=== PATIENT | female | born 1985 | race Caucasian/White ===

== ENCOUNTER → 2016-12-16 | Day surgery (SDC) | payer OTHER ==
[~2016-12-16] MED LIST: AMOX-364 PO; IBUP800T28 PO; INFL100V IV; Lactated Ringer's 1,000 ML IV ONE; MULT-666 PO; ONDA-54 PO; OXYC1TAB24 PO; PRE20 PO; RANI-426 PO
== END | disposition home or self-care (01) ==
LOC: END 12:47
PROVIDERS: ATTEND Internal Medicine Gastroenterology
DX: K51.90 Ulcerative colitis, unspecified, without complications (principal); Z53.8 Procedure and treatment not carried out for other reasons

== ENCOUNTER 2016-12-25 01:20 | Emergency (ER) | payer OTHER ==
[~2016-12-25] VITALS: Ht 160 cm; Wt 98.6 kg
[~2016-12-25 01:20] MED LIST changes: -AMOX-364 PO; -INFL100V IV; -Lactated Ringer's 1,000 ML IV ONE; -ONDA-54 PO; -PRE20 PO
[2016-12-25 01:25] VITALS: BP 146/83; PULSE 127; RESP 18; O2SAT 99
--- NOTE | 2016-12-25 01:48 | ED.REPORT ---
HPI-Abd Pain F Under 40 Date of Service Dec 25, 2016 ED Provider: Doc,Ed MD The pt is a 31 y/o female w/ a hx of ulcerative colitis presenting to the ED complaining of severe abdominal pain onset 6 days ago. She went to her PCP 5 days ago who prescribed her Prednisone 40 MG which she took for 3 days. She is experiencing diarrhea, blood in the stool, and upper and left sided abdominal pain which radiates to her back w/ a throbbing pain. The pt took a Vicodin at 2130 w/ minimal relief and a CBD drink that did no help at all. She last had a fever 5 days ago. Nursing Notes Stated Complaint: ABDOMINAL PAIN Chief Complaint: Female Abdominal Pain Nursing Notes Reviewed: Yes Allergies: Coded Allergies: No Known Allergies (Verified , 10/25/03) Scheduled Amoxicillin/Clav K ER 1000-62.5 mg (Augmentin XR 1000-62.5 mg) 1 Each Tab.er.12h 1 TABLET PO BID Multivitamin (Once Daily) 1 Each Tablet 1 EACH PO DAILY Prednisone (PredniSONE) 20 Mg Tablet 40 MG PO DAILY Ranitidine (Ranitidine) 75 Mg Tablet 75 MG PO DAILY Scheduled PRN Ibuprofen (Ibuprofen) 800 Mg Tablet 800 MG PO Q6H PRN PRN For Pain Ondansetron (Ondansetron) 8 Mg Tablet 8 MG PO QID PRN PRN For Nausea oxyCODONE-Acetaminophen 5-325 mg (oxyCODONE-Acetaminophen 5-325 mg) 1 Each Tablet 1-2 TAB PO Q4H PRN PRN For Pain oxyCODONE-Acetaminophen 5-325 mg (oxyCODONE-Acetaminophen 5-325 mg) 1 Each Tablet 2 TAB PO Q6H PRN PRN For Pain General Time Seen by MD: 01:48 Chief Complaint Abdominal pain Hx Obtained From: Patient Arrived By: Walk-in Sudden in Onset?: Yes Onset Occurred: Just prior to arrival Symptom Duration: Since onset Severity: Current: Severe Severity: Maximum: Severe Recent Healthcare: No recent hospitalization, Recent doctor visit Similar Sx Previous: Yes Past Medical History Past Medical History Ulcerative colitis Past Surgical History Smoking History Never Smoker Ambulatory Status Independent Review of Systems GI: Reports: Abdominal pain, Bloody/tarry stool, Diarrhea Musculoskeletal: Reports: Back pain Complete sys rev & neg: except as marked. Physical Exam Initial Vital Signs Vital Signs (First) Date Time Temp Pulse Resp B/P Pulse Ox O2 Delivery O2 Flow Rate FiO2 12/25/16 01:25 37.4 127 18 146/83 99 Room Air Initial VS: Reviewed Head / Eyes: Atraumatic, Normocephalic Neck: Supple, Full range of motion Extremities: Vascular intact, Neuro intact, No swelling, No tenderness Skin: Warm, Dry, No cyanosis Neurologic: Alert, Oriented, Nonfocal Psychiatric: Mood/affect normal, Behavior normal, Normal thought content General/Constitutional: Awake, Alert Distress / Hydration: Positive: Distress mild Appearance / Presentation: Positive: Obese Respiratory / Chest: Atraumatic, Breath sounds NL, Breath sounds = bilat, No respiratory distress, No rales, No rhonchi, No wheezing Cardiovascular: Heart rate NL, Regular rhythm, Heart sounds NL Abdomen: Atraumatic, Soft, BS normoactive Tenderness/Guarding/Rebound: Positive: Tender diffuse Back: Atraumatic, Full range of motion Interpretation & Diagnostics Lab Results Interpretation Result Diagram: 12/25/16 0145 12/25/16 0145 Test 12/25/16 01:45 12/25/16 02:00 12/25/16 02:35 White Blood Count 13.8th/mm3 (3.8-10.1) Red Blood Count 4.18mil/mm3 (3.90-5.20) Hemoglobin 11.6g/dL (12.0-15.6) Hematocrit 36.0% (35.0-46.0) Mean Corpuscular Volume 86.1fL (81-100) Mean Corpuscular Hemoglobin 27.8pg (27.0-35.0) Mean Corpuscular Hemoglobin Concent 32.2% (32.0-37.0) Red Cell Distribution Width 14.4% (12.3-15.4) Platelet Count 551bil/L (150-400) Neutrophils (%) (Auto) 59.1% (40-74) Lymphocytes (%) (Auto) 28.2% (14-46) Monocytes (%) (Auto) 11.6% (4-12) Eosinophils (%) (Auto) 0.4% (0-5) Basophils (%) (Auto) 0.1% (0-3) Prothrombin Time 10.0sec (8.1-12.5) Prothromb Time International Ratio 0.94ratio Sodium Level 136mEq/L (134-144) Potassium Level 3.6mEq/L (3.5-5.2) Chloride Level 95mEq/L (97-108) Carbon Dioxide Level 24mmol/L (18-29) Blood Urea Nitrogen 15mg/dL (6-20) Creatinine 1.02mg/dL (0.57-1.00) Estimat Glomerular Filtration Rate 90mL/min (>59) Glucose Level 90mg/dL (60-99) Calcium Level 9.2mg/dL (8.5-10.1) Magnesium Level 2.1mg/dL (1.6-2.6) Total Bilirubin 0.3mg/dL (0.0-1.2) Aspartate Amino Transf (AST/SGOT) 24U/L (0-50) Alanine Aminotransferase (ALT/SGPT) 26U/L (0-32) Alkaline Phosphatase 151U/L (25-150) Total Protein 8.6g/dL (6.4-8.4) Albumin 3.8g/dL (3.4-5.0) Lipase 27U/L (13-60) Urine Color Yellow (YELLOW) Urine Appearance Cloudy (CLEAR,HAZY) Urine pH 6.0 (5.0-8.0) Urine Specific [place] 1.020 (1.003-1.035) Urine Protein 30mg/dL (NEG,TRACE) Urine Glucose (UA) Negativemg/dL (NEGATIVE) Urine Ketones Tracemg/dL (NEGATIVE) Urine Occult Blood Moderate (NEGATIVE) Urine Nitrite Negative (NEGATIVE) Urine Bilirubin Negative (NEGATIVE) Urine Urobilinogen Normalmg/dL (NORMAL) Urine Leukocyte Esterase Moderate (NEGATIVE) Urine RBC 3-10/hpf (0-2) Urine WBC >50/hpf (0-5) Urine Epithelial Cells Many/hpf (NONE-MOD) Urine Crystals None seen (NONE SEEN) Urine Bacteria Moderate/hpf (NONE-FEW) Urine Hyaline Casts None/lpf (NONE) Urine Granular Casts None seen (NONE SEEN) Urine Waxy Casts None seen (NONE SEEN) Urine Red Blood Cell Casts None seen (NONE SEEN) Urine White Blood Cell Casts None seen (NONE SEEN) Urine Mucus None seen (None Seen) Urine Trichomonas None seen (NONE SEEN) Urine Yeast None (NONE SEEN) Urinalysis Comment None Urine Culture Reflexed Indicated Lactic Acid Level 0.8mmol/L (0.4-2.0) CT Abd / Pelvis Interpretation Conclusion: Edematous wall thickening of the distal transverse colon, descending colon and sigmoid colon consistent w/ ulcerative colitis. There is some fatty infiltration of the rectal wall compatible w/ chronic colitis. This report was transmitted to the emergency room at 12/25/16 - 3:22:38 AM PDT. Study type: Abdominal CT IV contrast, Abdom CT oral contrast Interpretation / Wet Read by: Interpret - Radiologist Re-Eval/Medical Decision Med Decision/Clinical Course Med Decision/Clinical Course: 31-year-old ulcerative colitis presents with a flare, documented on CT tonight. CT was obtained because of treatment failure after five days of prednisone. She had previously done well on Remicade, but is waiting for insurance clearance to resume therapy. SHe has no evidence of perforation or other surgical complications at this point. She is improved with Decadron given IV and will return home with plan to resume her 40 mg prednisone dose, contact Dr. BARTHOLOMEW today. Incidental note made of a urinary tract infection, we will treat that with Augmentin, adding anaerobe coverage to help to deal with her ulcerative colitis flare. Source of Hx: Old records Re-Evaluation/Progress : Time of Eval: 04:51 Re-Evaluation/Progress Note: Pt rechecked. Discussed radiology results. Pts abdomen is still mildly tender but overall she is feeling better. Informed pt of plan for treatment. Pt understands and agrees with plan for treatment. F/U instructions and RTER warnings given. All questions addressed. Counseled Regarding: Diagnosis, Lab results, Need for follow-up, When/why to return to ED Discharge & Departure Primary Impression: Ulcerative colitis Ulcerative colitis location: unspecified ulcerative colitis location Digestive disease complication type: unspecified complication Qualified Code: K51.919 - Ulcerative colitis, unspecified with unspecified complications Disposition: Home Discharge Condition All VS Reviewed: Yes Condition: Stable Additional Instructions: Resume prednisone at 40 mg daily, beginning this morning. Call Dr. Bartholomew this morning for follow-up as soon as that can be arranged. Sparing use of Percocet as needed for pain. Zofran if needed for nausea. Augmentin twice daily. Return if you develop fever or worsening bleeding or pain or other new symptoms of concern. Referrals: Silvino Reddy MD (PCP) Scribe Attestation Portions of this note were transcribed by El Kenny. I, Dr. Sutton personally performed the history, physical exam and medical decision-making; I reviewed and confirmed the accuracy of the information in the transcribed note. Signed by : Ivett Samuel, 12/24/16 and 1513. copies to: Silvino Reddy MD, Christopher W MD Dec 25, 2016 01:48 El Kenny Dec 25, 2016 02:01
[2016-12-25] MEDS ORDERED: Iohexol 300 mg/mL 30 mL Inj PO ONE (02:00)
[2016-12-25] MEDS ORDERED: Ondansetron 2 mg/mL 2 mL Inj IVPUSH ONE (02:00)
[2016-12-25] MEDS ORDERED: 0.9% Sodium Chloride 1,000 ML IV ONE (02:00)
[2016-12-25] MEDS ORDERED: Dexamethasone Inj 10 MG in 0.9% Sodium Chloride-Pha MIX 50 ML IV ONE (02:00)
[2016-12-25] MEDS: HYDROmorphone 1 mg/mL Inj IVPUSH PRN ×2 (02:17→03:44)
[2016-12-25 02:22] LABS: BASOPHILS % (AUTO) 0.1 % (0-3); EOSINOPHILS % (AUTO) 0.4 % (0-5); MONOCYTES % (AUTO) 11.6 % (4-12); Mean Corpuscular Hemoglobin 27.8 pg (27.0-35.0); Mean Corpuscular Volume 86.1 fL (81-100); NEUTROPHILS % (AUTO) 59.1 % (40-74); Platelet Count 551 bil/L (150-400)
[2016-12-25 02:33] LABS: APPEARANCE,URINE CLOUDY (CLEAR,HAZY); COLOR,URINE YELLOW (YELLOW); OCCULT BLOOD,URINE MODERATE (NEGATIVE); UROBILINOGEN,URINE NORMAL (NORMAL)
[2016-12-25 02:38] LABS: INR 0.94 ratio
[2016-12-25 02:46] LABS: Magnesium 2.1 mg/dL (1.6-2.6)
[2016-12-25 03:43] VITALS: BP 114/63; PULSE 88; RESP 18; O2SAT 98
[2016-12-25] MEDS ORDERED: ONDA-54 PO (04:59)
[2016-12-25] MEDS ORDERED: AMOX-364 PO (04:59)
[2016-12-25] MEDS ORDERED: PRE20 PO (04:59)
[2016-12-25] MEDS ORDERED: OXYC1TAB24 PO (05:05)
--- NOTE | 2016-12-25 08:23 | DRSVH ---
PROCEDURE: CT ABDOMEN AND PELVIS WITH CONTRAST ([id number]) INDICATIONS: ulcerative colitis, flare despite prednisone TECHNIQUE: After the administration of oral and intravenous contrast, 5 mm thick sections acquired from the diap hragms to the symphysis. 5 mm thick coronal and sagittal reformats were performed. For radiation do se reduction, the following was used: automated exposure control, adjustment of mA and/or kV accordi ng to patient size. COMPARISON: CT abdomen and pelvis 12/09/2012, 10/16/2012 FINDINGS: Preliminary report by night court magistrate radiology Image quality: Excellent. ABDOMEN: Lung bases: Lung bases are clear. Heart size is normal. Solid organs: Liver and spleen are normal in size and enhancement. Gallbladder appears normal. David iary system is non-dilated. Pancreas enhances normally. No adrenal nodules. Kidneys are normal in size and enhancement, without hydronephrosis. Peritoneum and bowel: Stomach and small bowel appear normal in caliber and wall thickness. The append ix is not definitely visualized but no pericecal inflammation is present. Similar to prior exams, the re is colonic wall thickening and pericolic fat stranding involving the distal transverse, descending and proximal sigmoid colon compatible with recurrent colitis. The rectosigmoid colon shows fatty inf iltration of the wall, likely result of previous inflammation. No perforation, abscess formation or f ree air seen. Nodes and vessels: No retroperitoneal or mesenteric adenopathy. Aorta and inferior vena cava are no rmal in caliber. Miscellaneous: No ventral hernias. PELVIS: Genitourinary: Bladder wall thickness is normal. Uterus and adnexa are unremarkable, ovary showing normal follicular pattern. Miscellaneous: No inguinal hernias or adenopathy. Bones: No suspicious bony lesions. No vertebral body compression fractures. IMPRESSION: 1. Recurrent ulcerative colitis from the distal transverse through the proximal sigmoid colon. Chroni c postinflammatory changes more distally. No apparent complication. Findings are concordant with the preliminary report. Dictated by: Luigi Draper M.D. on 12/25/2016 at 8:14 Approved by: Luigi Draper M.D. on 12/25/2016 at 8:21
[2017-01-01] MEDS ORDERED: INFL100V IV (14:26)
[2017-01-02] MEDS ORDERED: PRE20 PO (07:44)
== END 2016-12-25 05:13 | disposition home or self-care (01) ==
LOC: SED 01:20
DX: K51.919 Ulcerative colitis, unspecified with unspecified complications (principal)
CPT/HCPCS: 36415; 74177; 80053; 81000; 81025; 83605; 83690; 83735; 85025; 85610; 87086; 87088; 96361; 96374; 96375; 99285; J1100; J1170; J2405; J7030; Q9967

== ENCOUNTER 2016-12-27 18:18 | Emergency (ER) | payer OTHER ==
[~2016-12-27] VITALS: Ht 160 cm; Wt 98.6 kg
[~2016-12-27 18:18] MED LIST changes: +AMOX-364 PO; +ONDA-54 PO; +PRE20 PO
[2016-12-27 18:21] VITALS: BP 141/95; PULSE 95; RESP 16; O2SAT 99
--- NOTE | 2016-12-27 18:35 | ED.REPORT ---
HPI-General Illness Date of Service Dec 27, 2016 ED Provider: Avery Vargas MD Pt is a 31 y/o female w/ a hx of ulcerative colitis presenting to the ED c/o diffuse cramping abdominal pain onset 9 days ago. The patient was seen here in the ED 2 days ago for similar symptoms. She has a history of ulcerative colitis (UC) and was complaining of severe abdominal pain and bloody diarrhea for the last 6 days. She was prescribed [address] Bartholomew about [address] scan was obtained which showed no evidence of perforation or other surgical-requiring complications. The CT did show edematous wall thickening of the colon consistent with her known UC. She was given IV Decadron and was advised to continue her prednisone and f/u with her GI physician Dr. Bartholomew. She was coincidentally found to have a UTI and was treated with Augmentin. The patient normally takes Remicade which she typically receives every 8 weeks but had a lapse in her insurance so her last dose was the end of September. She has been experiencing clotted blood with bowel movements as well as diarrhea and fatigue. Compared to her last ED visit, she feels worse in terms of pain. The prescribed Oxycodone has not provided relief. Nursing Notes Stated Complaint: POSS ULCER COLITIS Chief Complaint: Female Abdominal Pain Nursing Notes Reviewed: Yes Allergies: Coded Allergies: No Known Allergies (Verified , 12/27/16) Scheduled Amoxicillin/Clav K ER 1000-62.5 mg (Augmentin XR 1000-62.5 mg) 1 Each Tab.er.12h 1 TABLET PO BID Multivitamin (Once Daily) 1 Each Tablet 1 EACH PO DAILY Prednisone (PredniSONE) 20 Mg Tablet 40 MG PO DAILY Ranitidine (Ranitidine) 75 Mg Tablet 75 MG PO DAILY Scheduled PRN Ibuprofen (Ibuprofen) 800 Mg Tablet 800 MG PO Q6H PRN PRN For Pain Ondansetron (Ondansetron) 8 Mg Tablet 8 MG PO QID PRN PRN For Nausea oxyCODONE-Acetaminophen 5-325 mg (oxyCODONE-Acetaminophen 5-325 mg) 1 Each Tablet 1-2 TAB PO Q4H PRN PRN For Pain oxyCODONE-Acetaminophen 5-325 mg (oxyCODONE-Acetaminophen 5-325 mg) 1 Each Tablet 2 TAB PO Q6H PRN PRN For Pain General Time Seen by MD: 18:30 Chief Complaint Abdominal pain Sudden in Onset?: No Onset Occurred: 1 week ago Symptom Duration: Since onset Location: : Abdomen Quality: Cramping Severity: Current: Moderate Severity: Maximum: Moderate Recent Healthcare: Recent doctor visit, Recent testing, Previous diagnosis, Prior workup Past Medical History Past Medical History Ulcerative colitis Past Surgical History x2 Smoking History Never Smoker Ambulatory Status Independent Review of Systems Full Review of Systems Constitutional: Denies: Chills, Fever Respiratory: Denies: Non-productive cough, Shortness of breath Cardiovascular: Denies: Chest pain GI: Reports: Abdominal pain, Bloody/tarry stool, Diarrhea Complete sys rev & neg: except as marked. Physical Exam Vital Signs Vital Signs Date Time Temp Pulse Resp B/P Pulse Ox O2 Delivery O2 Flow Rate FiO2 12/27/16 23:07 89 20 113/60 99 Room Air 12/27/16 18:21 37.0 95 16 141/95 99 Room Air Initial VS: Reviewed, Vital signs normal Head / Eyes: Atraumatic, Normocephalic, PERRL ENT: Mucous membranes moist, Conjunctiva normal, No scleral icterus Neck: Supple, Full range of motion Respiratory: Breath sounds normal, Clear to auscultation, No respiratory distress Cardiovascular: Regular rate & rhythm, Heart sounds normal, Intact distal pulses Extremities: Vascular intact, Neuro intact, No swelling Skin: Warm, Dry, No cyanosis Neurologic: Alert, Oriented, Nonfocal Psychiatric: Mood/affect normal, Behavior normal, Normal thought content General/Constitutional: Awake, Alert, No acute distress, Cooperative, Not toxic appearing Appearance / Presentation: Positive: Uncomfortable Abdomen: Atraumatic, Soft, No guarding, No rebound, BS normoactive, No distention, No palpable mass Tenderness/Guarding/Rebound: Positive: Tender diffuse (mild) Interpretation & Diagnostics Lab Results Interpretation Result Diagram: 12/27/16 2030 12/27/16 2030 Test 12/27/16 20:30 12/27/16 20:33 White Blood Count 12.1th/mm3 (3.8-10.1) Red Blood Count 3.98mil/mm3 (3.90-5.20) Hemoglobin 11.0g/dL (12.0-15.6) Hematocrit 34.8% (35.0-46.0) Mean Corpuscular Volume 87.4fL (81-100) Mean Corpuscular Hemoglobin 27.6pg (27.0-35.0) Mean Corpuscular Hemoglobin Concent 31.6% (32.0-37.0) Red Cell Distribution Width 14.4% (12.3-15.4) Platelet Count 525bil/L (150-400) Neutrophils (%) (Auto) 70.7% (40-74) Lymphocytes (%) (Auto) 17.7% (14-46) Monocytes (%) (Auto) 10.8% (4-12) Eosinophils (%) (Auto) 0% (0-5) Basophils (%) (Auto) 0.1% (0-3) Sodium Level 139mEq/L (134-144) Potassium Level 3.7mEq/L (3.5-5.2) Chloride Level 99mEq/L (97-108) Carbon Dioxide Level 26mmol/L (18-29) Blood Urea Nitrogen 9mg/dL (6-20) Creatinine 0.79mg/dL (0.57-1.00) Estimat Glomerular Filtration Rate 121mL/min (>59) Glucose Level 75mg/dL (60-99) Calcium Level 9.0mg/dL (8.5-10.1) Magnesium Level 2.1mg/dL (1.6-2.6) Total Bilirubin 0.2mg/dL (0.0-1.2) Aspartate Amino Transf (AST/SGOT) 16U/L (0-50) Alanine Aminotransferase (ALT/SGPT) 26U/L (0-32) Alkaline Phosphatase 131U/L (25-150) Total Protein 7.7g/dL (6.4-8.4) Albumin 3.4g/dL (3.4-5.0) Lipase 15U/L (13-60) Hold Youssef Top Tube Received (Received) Hold Urine Received (Received) CT Abd / Pelvis Interpretation IMPRESSION: Overall, stable CT examination since 12/25/16 with redemonstration of long segment descending, sigmoid colon and rectal wall thickening in keeping with the patient's given clinical history of inflammatory bowel disease. No evidence of bowel perforation. Dictated by: Arsenio Parmar M.D. on 12/27/2016 at 21:42 Approved by: Arsenio Parmar M.D. on 12/27/2016 at 21:53 Study type: Abdominal CT IV contrast, Abdom CT oral contrast Interpretation / Wet Read by: Interpret - Radiologist Re-Eval/Medical Decision Med Decision/Clinical Course Pt is a 31 y/o female w/ a hx of ulcerative colitis presenting to the ED c/o diffuse cramping abdominal pain onset 9 days ago. The patient was seen here in the ED 2 days ago for similar symptoms. She has a history of ulcerative colitis (UC) and was complaining of severe abdominal pain and bloody diarrhea for the last 6 days. She was prescribed [address] Bartholomew about [address] scan was obtained which showed no evidence of perforation or other surgical-requiring complications. The CT did show edematous wall thickening of the colon consistent with her known UC. She was given IV Decadron and was advised to continue her prednisone and f/u with her GI physician Dr. Bartholomew. She was coincidentally found to have a UTI and was treated with Augmentin. The patient normally takes Remicade which she typically receives every 8 weeks but had a lapse in her insurance so her last dose was the end of September. She has been experiencing clotted blood with bowel movements as well as diarrhea and fatigue. Compared to her last ED visit, she feels worse in terms of pain. The prescribed Oxycodone has not provided relief. Here in the emergency department the patient is afebrile, hemodynamically stable with examination as above. Meds given: IV fluids, Zofran, Dilaudid, patient reported significant improvement. Labs notable as below: CBC: leukocytosis of 12.1 stable from prior, HCT of 34.8 stable from prior Coag studies: normal CMP: unremarkable CT abd/pelvis: IMPRESSION: Overall, stable CT examination since 12/25/16 with redemonstration of long segment descending, sigmoid colon and rectal wall thickening in keeping with the patient's given clinical history of inflammatory bowel disease. No evidence of bowel perforation. Given the patient's complaint of worsening pain that having of inflammatory bowel disease and being on steroids after to repeat her CT scan after discussing the risks and benefits. This study was unrevealing. Moreover her laboratory studies are unrevealing. Patient was discussed with GI doctor Monserrat it was not felt that she would benefit from admission or further workup at this time. Serial abdominal examinations remained relatively benign without any guarding, rigidity or rebound. I updated the patient as to the workup thus far and she became quite upset stating that "she wanted to see a real doctor and that we did not know what we were doing". I discussed with the patient that I would like to be due more to treat her symptoms but that I feel that she would benefit most from seeing a GI specialist. I offered the patient admission to the hospitalist for symptom management and GI consultation however she refused stating that she would "just go home and suffer". I strongly advised her to follow up with GI this week and she stated she would try to get in for an appointment. I spent quite a while with the patient trying to address her concerns and discontent. She was discharged in stable condition with plan to continue her prednisone and follow-up with GI as an outpatient. She is to return should she develop any worsening symptoms. She has a C. difficile pending from her GI specialist and she will follow up these results. Prior to discharge follow-up and return precautions were reviewed in detail with the patient who verbalized understanding and agreement with the plan. The patient was discharged in stable condition. Source of Hx: Old records Time of Eval: 22:45 Re-Evaluation/Progress Note: Pt rechecked. She is still feeling unwell. Discussed lab and imaging findings and GI consult. Discussed admission for symptomatic relief vs. discharge. She states she can manage her symptoms at home but "wants to be fixed". Eventually she decides to be discharged and f/u in clinic. Consultation : Referral / Consult Name: Monica Cantrell MD Call Returned at: 22:41 Washing Machine Loader: Agrees with eval, Agrees with plan Note: Discussed case with GI. Doesn't see any indication for emergent treatment. Should get back on Remicade. Should call clinic to restart medication. Counseled Regarding: Diagnosis, Lab results, Need for follow-up, When/why to return to ED Discharge & Departure Primary Impression: Exacerbation of ulcerative colitis Digestive disease complication type: without complication Qualified Code: K51.90 - Ulcerative colitis, unspecified, without complications Additional Impressions: Leukocytosis Leukocytosis type: unspecified Qualified Code: D72.829 - Elevated white blood cell count, unspecified Diarrhea Diarrhea type: unspecified type Qualified Code: R19.7 - Diarrhea, unspecified Abdominal pain Abdominal location: unspecified location Qualified Code: R10.9 - Unspecified abdominal pain Agitation Disposition: Home Discharge Condition All VS Reviewed: Yes Condition: Stable Patient Instructions: Ulcerative Colitis (ED) Additional Instructions: Thank you for seeking care at the emergency room. It is difficult for us to make definitive diagnoses in the ED but we believe that you are experiencing a flare of your ulcerative colitis. Laboratory studies today were relatively reassuring and your CT scan did not show any evidence of perforation or abscess. We discussed your case with the GI doctors and they are willing to see you in clinic in the next couple of days. Please call them first thing tomorrow for an appointment. Tell them that you were seen in the ED and that we recommended close follow-up. I offered you admission to the hospital however you refused and preferred to be discharged. Our primary goal today in the ED was to evaluate you for any life-threatening conditions. Your evaluation was reassuring at this time however it is very important that you get close follow-up. Please continue to take prednisone and pain medications as prescribed. You should return to the ED immediately if you develop increasing pain, increasingly bloody stool, fevers, vomiting, cough, shortness of breath, chest pain, lightheadedness, weakness or any other concerning signs or symptoms. Thank you for letting us partake in your care today. Referrals: Silvino Reddy MD (PCP) Dragan Bartholomew MD Attestation Portions of this note were transcribed by Harry Chávez. I, Dr. Vargas personally performed the history, physical exam and medical decision-making; I reviewed and confirmed the accuracy of the information in the transcribed note. Signed by Ivett Casper, 12/27/16 - 1999 copies to: Silvino Reddy MD; Dragan Bartholomew MD, Beck O MD Dec 27, 2016 18:35 HARRY CHÁVEZ Dec 27, 2016 19:38
[2016-12-27] MEDS ORDERED: 0.9% Sodium Chloride 1,000 ML IV ONE (20:19)
[2016-12-27] MEDS ORDERED: Ondansetron 2 mg/mL 2 mL Inj IVPUSH ONE (20:20)
[2016-12-27] MEDS: HYDROmorphone 0.5 mg/0.5 mL iSecure Syringe IVPUSH PRN ×3 (20:43→23:06)
[2016-12-27 20:52] LABS: BASOPHILS % (AUTO) 0.1 % (0-3); EOSINOPHILS % (AUTO) 0 % (0-5); MONOCYTES % (AUTO) 10.8 % (4-12); Mean Corpuscular Hemoglobin 27.6 pg (27.0-35.0); Mean Corpuscular Volume 87.4 fL (81-100); NEUTROPHILS % (AUTO) 70.7 % (40-74); Platelet Count 525 bil/L (150-400)
[2016-12-27 21:12] LABS: Magnesium 2.1 mg/dL (1.6-2.6)
--- NOTE | 2016-12-27 21:54 | DRSVH ---
PROCEDURE: CT ABDOMEN AND PELVIS WITH CONTRAST ([id number]) INDICATIONS: worse abd pain, UC TECHNIQUE: After the administration of oral and intravenous contrast, 5 mm thick sections acquired from the diap hragms to the symphysis. 5 mm thick coronal and sagittal reformats were performed. For radiation do se reduction, the following was used: automated exposure control, adjustment of mA and/or kV accordi ng to patient size. COMPARISON: [facility], CT, CT ABD PELVIS W CON, 12/25/2016, 3:12. FINDINGS: Image quality: Excellent. ABDOMEN: Lung bases: Lung bases are clear. Heart size is normal. Solid organs: Liver and spleen are normal in size and enhancement. Gallbladder negative. Biliary s ystem is non-dilated. Pancreas enhances normally. No adrenal nodules. Kidneys are normal in size a nd enhancement, without hydronephrosis. Peritoneum and bowel: There is long segment circumferential wall thickening involving the rectum to t he distal transverse colon. Overall, grossly unchanged appearance. There is adjacent inflammatory fat stranding. Fatty infiltration of the wall of the sigmoid colon and rectum suggestive of chronic infl ammatory bowel disease. No free fluid or air. Nodes and vessels: No retroperitoneal or mesenteric adenopathy. Aorta and inferior vena cava are no rmal in caliber. Miscellaneous: No ventral hernias. PELVIS: Genitourinary: Bladder wall thickness is normal. Miscellaneous: No inguinal hernias or adenopathy. Bones: No suspicious bony lesions. No vertebral body compression fractures. IMPRESSION: Overall, stable CT examination since 12/25/16 with redemonstration of long segment descending, sigmoid colon and rectal wall thickening in keeping with the patient's given clinical history of inflammator y bowel disease. No evidence of bowel perforation. Dictated by: Arsenio Parmar M.D. on 12/27/2016 at 21:42 Approved by: Arsenio Parmar M.D. on 12/27/2016 at 21:53
[2016-12-27 23:07] VITALS: BP 113/60; PULSE 89; RESP 20; O2SAT 99
[2017-01-01] MEDS ORDERED: INFL100V IV (14:26)
[2017-01-02] MEDS ORDERED: PRE20 PO (07:44)
== END 2016-12-27 23:07 | disposition home or self-care (01) ==
LOC: SED 18:18
DX: K51.90 Ulcerative colitis, unspecified, without complications (principal); D72.829 Elevated white blood cell count, unspecified; R45.1 Restlessness and agitation; R53.83 Other fatigue
CPT/HCPCS: 36415; 74177; 80053; 81025; 83690; 83735; 85025; 96361; 96374; 96375; 96376; 99285; J1170; J2405; J7030; Q9967

== ENCOUNTER 2016-12-30 08:02 | Day surgery (SDC) | payer OTHER ==
[~2016-12-30] VITALS: Ht 160 cm; Wt 100.5 kg
[~2016-12-30 08:02] MED LIST changes: +FILTER IV ONE; +INFLIXIMAB IV ONE; +MICRON IV ONE; +MethylprednisoLONE Sodium Succinate 40 mg/mL Inj IVPUSH PRN; +SODIUM CHLORIDE 0.9% IV ONE; +Sodium Chloride LOK Flush 10 mL Syringe IVFLUSH PRN; +diphenhydrAMINE 25 mg Capsule PO ONE; +diphenhydrAMINE 25 mg Capsule PO PRN
[2016-12-30 09:15] VITALS: BP 122/70; PULSE 80; RESP 16; O2SAT 97
[2016-12-30 09:46] VITALS: BP 127/68; PULSE 81; RESP 16; O2SAT 97
[2016-12-30 10:16] VITALS: BP 125/72; PULSE 77; RESP 16; O2SAT 96
[2016-12-30 11:20] VITALS: BP 115/66; PULSE 76; RESP 16; O2SAT 97
--- NOTE | 2016-12-30 12:42 | NUR ---
Remicade infusion: IV started to right AC. Patient rates her abdominal pain r/t Ulcerative Colitis at 8/10 today. She has missed some days at work due to her pain. Tolerated ordered Remicade infusion without incident. IV d/c'd intact. She did not want to stay 30 min after infusion as ordered for monitoring. Stated that she does just fine. At this point she is waiting to hear back from her insurance to see if her medication is covered before she can schedule her next Remicade infusion in 8 weeks. Discharged home ambulatory in stable condition.
[2017-01-01] MEDS ORDERED: INFL100V IV (14:26)
[2017-01-02] MEDS ORDERED: PRE20 PO (07:44)
== END 2016-12-30 23:59 | disposition home or self-care (01) ==
LOC: MOCO 08:02
PROVIDERS: ATTEND Internal Medicine Gastroenterology
DX: K51.90 Ulcerative colitis, unspecified, without complications (principal)
CPT/HCPCS: 96413; 96415; J1745; J7050

== ENCOUNTER → 2017-01-02 | Day surgery (SDC) | payer OTHER ==
[~2017-01-02] VITALS: Ht 160 cm; Wt 98.4 kg
[~2017-01-02] MED LIST changes: -AMOX-364 PO; +Atropine 0.4 mg/mL Inj IVPUSH PRN; -FILTER IV ONE; +INFL100V IV; -INFLIXIMAB IV ONE; +Lactated Ringer's 1,000 ML IV ONE; +Lactated Ringer's 1,000 ML IV SCH; -MICRON IV ONE; -MethylprednisoLONE Sodium Succinate 40 mg/mL Inj IVPUSH PRN; +MetoCLOpramide 5 mg/mL 2 mL Inj IVPUSH PRN; +Ondansetron 2 mg/mL 2 mL Inj IVPUSH PRN; +Propofol 10,000 mCg/mL 20 mL Inj ONE; -SODIUM CHLORIDE 0.9% IV ONE; -Sodium Chloride LOK Flush 10 mL Syringe IVFLUSH PRN; -diphenhydrAMINE 25 mg Capsule PO ONE; -diphenhydrAMINE 25 mg Capsule PO PRN
[2017-01-02 07:40] VITALS: BP 109/23; PULSE 88; RESP 15; O2SAT 100
--- NOTE | 2017-01-02 07:55 | PCM.HPANE ---
Patient Data Date of Service: Jan 02, 2017 Surgeon Admitting Provider: Attending Provider:Dragan Bartholomew MD Primary Care Physician:Silvino Reddy MD Other Provider: Reason for Visit Ulcerative Colitis Ht/WT & BMI Height (Feet): 5 Height (Inches): 3 Weight (Kilograms): 98.43 Body Mass Index 38.00 Allergies Coded Allergies: No Known Allergies (Verified , 12/27/16) Past Anesthesia History Anesthesia History: Denies:: Abnormal Airway, Anesthesia Reactions, Difficult Intubation, Fam Anesthesia Reaction, Fam Malignant Hypertherm, Malignant Hyperthermia Diabetes History Hx Diabetes?: No MRSA MRSA: No Medications Hypertension Medication: No Home Meds Incl Beta Jason: No Active Scripts oxyCODONE-Acetaminophen 5-325 mg 1 Each Tablet2 Tab PO Q6H PRN For Pain #30 TABLET Prov:Charlie Sutton MD 12/25/16 Ondansetron 8 Mg Tablet8 Mg PO QID PRN For Nausea #10 TABLET Prov:Charlie Sutton MD 12/25/16 Reported Medications Prednisone (PredniSONE)20 Mg [id number] Mg PO DAILY Ref 0 01/02/17 Infliximab (Remicade)10 Mg/Ml [id number] Mg IV 01/01/17 Ranitidine 75 Mg Oukhex36 Mg PO DAILY Ref 0 11/11/15 Multivitamin (Once Daily)1 Each Tablet1 Each PO DAILY 11/11/15 Discontinued Scripts Ibuprofen 800 Mg [id number] Mg PO Q6H PRN For Pain #30 TABLET Prov:Cindy John MD 01/19/16 Amoxicillin/Clav K ER 1000-62.5 mg (Augmentin XR 1000-62.5 mg)1 Each Tab.er.12h1 Tablet PO BID #20 TABLET Ref 0 Prov:Charlie Sutton MD 12/25/16 Prednisone (PredniSONE)20 Mg Dollrg86 Mg PO DAILY #30 TABLET Prov:Charlie Sutton MD 12/25/16 oxyCODONE-Acetaminophen 5-325 mg 1 Each Tablet1-2 Tab PO Q4H PRN For Pain #40 TABLET Prov:Yara Case MD 01/19/16 History History of ENT Problems?: No HEENT History: Denies:: Abnormal Airway Difficult Intubation Hearing Problem Denture Type: None Teeth Condition: Within Normal Limits Other HEENT Pertinent History: lip rings Hx of Heart Problems?: No Cardiovascular History: Denies:: Congestive Heart Failure Hypertension Hx of Respiratory Problem?: No Respiratory History: Denies:: Tuberculosis Hx Neurologic Problems?: Yes Neurological History: Positive for:: Headaches Denies:: CVA Hx of GI Problems?: Yes (ulcerative colitis) Hx of Problems?: No Female Hx: Denies:: Currently (TUBES TIDE) Endometriosis Pelvic Inflammatory Problems with Breasts? Hx Musculoskeletal Problems?: No Hx of Psycho/Social Problems?: No Psycho Social History: Denies:: Hx Depression Hx Surgeries?: Yes ( X2) Hx Any Other Health Problems?: Yes Other History: Positive for:: Hospitalization History Blood Transfusions: Positive for:: Blood Transfusions Denies:: Blood Transfuse Reaction Hx Diabetes: No Hx Alcohol Use: NoHx Substance Use: Yes (CBD for pain) Smoking Status: Never Smoker Have You Smoked inLast 12 mo: No Stop/Bang Treated for Sleep Apnea?: Yes Do You Have a CPAP Machine?: Yes TAMIKA Risk Assessment: High Risk, =/>3 Yes Risk Assessment Category Category 1A: Patient has history of documented sleep apnea, and HAS NOT received any narcotic, sedative or anesthesia administration during this stay. Category 1B: Patient has history of documented sleep apnea, and HAS received any narcotic , sedative or anesthesia administration during this stay Category 2: Patient has SUSPECTED Obstructive Sleep Apnea, and HAS received any narcotic , sedative or anesthesia administration during this stay. Category 3: Patient has SUSPECTED Obstructive Sleep Apnea and HAS NOT received narcotic, sedative or anesthesia administration during this stay. Category 4: Outpatient in Procedural Areas with known sleep apnea or who screen positive for High Risk via the STOP/BANG questionnaire. Exam Exam Vital Signs Vital Signs Date Time Temp Pulse Resp B/P Pulse Ox O2 Delivery O2 Flow Rate FiO2 01/02/17 07:40 36.6 88 15 109/23 100 Room Air General Appearance: Alert, Oriented X3, Cooperative HEENT/AIRWAY: MP 2, Neck Movement (OK), Mouth Opening (Wide) Lungs: Clear to Auscultation, Normal Air Movement Heart: Regular Rate/Rhythm, Normal S1, Normal S2 Plan Impression Patient chart reviewed, patient interviewed and anesthestic plan with risks, benefits, and alternatives discussed, and informed consent obtained. NPO per Anesth. Guidelines: Yes ASA Physical Status: ASA2 Mod Systemic Disease Anesthetic Plan: MAC Bene/Risks/Altern/Consents: Yes HP Complete Prior to Induction: Yes Mat Wong MD Jan 02, 2017 07:55
[2017-01-02 08:36] VITALS: BP 121/75; PULSE 88; RESP 16; O2SAT 100
--- NOTE | 2017-01-02 08:43 | PCM.ANEP1 ---
Post Anesthesia PACU Phase 1 Assessment Date of Service: Jan 02, 2017 Vital Signs Vital Signs Date Time Temp Pulse Resp B/P Pulse Ox O2 Delivery O2 Flow Rate FiO2 01/02/17 08:36 88 16 121/75 100 Room Air 01/02/17 07:40 36.6 88 15 109/23 100 Room Air Anesthetic Administered: MAC Level of Alertness: Sleepy, easy to arouse CRUZ's with Equal Strength: Yes Pain: Yes Nausea or Vomiting: No CV Function & Hydration Stable: No Airway Device: Oxygen Delivery: Room Air Lungs: Clear to Auscultation, Normal Air Movement Dermatome Level: Full Sensation PACU Phase 2 Assessment Complications: No Follow up Care: N/A Patient Instructions Provided: N/A Mat Wong MD Jan 02, 2017 08:43
[2017-01-02 08:45] VITALS: BP 123/70; PULSE 86; RESP 14; O2SAT 100
[2017-01-02 08:54] VITALS: BP 139/83; PULSE 97; RESP 14; O2SAT 100
--- NOTE | 2017-01-02 09:08 | ENDO ---
[address] [address] ENDOSCOPY PROCEDURE PATIENT: AVINASH CALI : 1985 MR#: [id number] ADMIT: 01/02/2017 JOB ID: [id number] DATE OF SURGERY: 01/02/2017 PRIMARY PROVIDER: Aldair Reddy MD. PROCEDURE: Colonoscopy with biopsies. INDICATIONS: A 31-year-old female with ulcerative colitis. She has been flaring since an insurance debacle in regards to Remicade. She was three weeks overdue for Remicade. She received her most recent dose three days ago and has started to feel some improvement. EQUIPMENT: [employer]. SEDATION: Monitored anesthesia as provided by Dr. Mat Wong. COMPLICATIONS: None identified. BOWEL PREPARATION: Suboptimal. PROCEDURE INFORMATION: After the risks and benefits were explained, written and verbal informed consent was obtained. The patient was brought into the endoscopy suite and placed into the left lateral decubitus position. Sedation was achieved using the above-stated medications with the addition of oxygen via nasal cannula. A digital rectal examination was accomplished. Mild internal and external, nonbleeding and nonthrombosed hemorrhoids were noted. The scope was introduced into the rectum and advanced to the cecum as identified by the appendiceal orifice, which was covered in stool and not really easily identifiable. The ileocecal valve was identified. The scope was slowly withdrawn to carefully examine the mucosa for any defects or lesions. Multiple direct views were made through the dentate line. The colon was decompressed. Scope removed from the patient who tolerated the procedure well. FINDINGS: The patient had moderate to severe ulcerative proctocolitis from the rectum all the way to the splenic flexure. The most intense region was in the rectosigmoid region. The transverse and ascending colon appeared devoid of inflammatory changes. Prep conditions were quite suboptimal as described above. We did not get a great look into the cecum and could not find the ileal orifice as a consequence. Segmental biopsies were taken from the ascending, transverse, descending, sigmoid and finally rectum for histopathologic analysis. ENDOSCOPIC DIAGNOSIS: Proctocolitis to splenic flexure. RECOMMENDATIONS: 1. Await histopathology. 2. Continue Remicade 1000 mg every 8 weeks. 3. The patient is encouraged to temporarily increase prednisone back up to 40 mg per day for the next four days and then retaper from there. 4. Follow up in my office in the next two weeks. 5. Taper off of pain medications as few clinically respond to the Remicade and prednisone.
--- NOTE | 2017-01-04 14:33 | PATH ---
SURGICAL PATHOLOGY Attending Physician:Michael Gaitan CASE STATUS: Signed Out PATIENT NAME: AVINASH CALI PID: [id number] : 1985 DATE COLLECTED:01/02/2017 16:28 SPECIMEN: 1: Colon, Biopsy 2: Colon, Biopsy 3: Colon, Biopsy 4: Colon, Biopsy 5: Rectum, Biopsy CLINICAL HISTORY: 1). ASCENDING BIOPSY 2). TRANSVERSE BIOPSY 3). DESCENDING BIOPSY 4). SIGMOID BIOPSY 5). RECTAL BIOPSY FINAL DIAGNOSIS: 1. Ascending Colon, Biopsy: Focal active inflammation. There is no evidence of granulomas, dysplasia, or malignancy. 2. Transverse Colon, Biopsy: Colorectal mucosa with no diagnostic abnormality. Negative for active inflammation, granulomas, dysplasia, and malignancy. 3. Descending Colon, Biopsy: Chronic active colitis. Negative for granulomas, dysplasia, and malignancy. 4. Sigmoid Colon, Biopsy: Chronic active colitis. Negative for dysplasia, granulomas, and malignancy. 5. Rectal Biopsy: Chronic active colitis. Negative for granulomas, dysplasia, and malignancy. ICD10: K52.9 NOTE: Part 1: Sections demonstrate superficial portions of colorectal mucosa with occasional neutrophils and regions of cryptitis. No granulomas, regions of dysplasia, or regions of neoplasia are identified. The differential diagnosis includes NSAID use, an acute self-limited bacterial colitis, the effect of sodium phophate-containing bowel preparation solutions, and idiopathic inflammatory bowel disease, in the appropriate clinical setting. Parts 3, 4, and 5: Sections demonstrate superficial portions of colorectal mucosa with crypt architectural distortion and a dense population of lymphocytes, plasma cells, and neutrophils within the lamina propria. Cryptitis is present and occasional crypt abscesses are present in parts 3 and 4. No granulomas, regions of dysplasia, or regions of neoplasia are identified. The differential diagnosis includes NSAID use, an acute self-limited bacterial colitis, the effect of sodium phophate-containing bowel preparation solutions, and idiopathic inflammatory bowel disease, in the appropriate clinical setting. GROSS DESCRIPTION: The specimen is received in five formalin filled containers labeled with the patient's name. 1). The specimen is labeled "ascending" and consists of a 0.2 x 0.2 x 0.1 CM portion of tissue which is entirely submitted in cassette 1A. 2). The specimen is labeled "transverse" and consists of 2 extremely tiny portions of tissue which aggregate to 0.1 x 0.1 x 0.1 CM. The specimen is entirely submitted in cassette 2A. 3). The specimen is labeled "descending" and consists of a 0.3 x 0.2 x 0.2 CM portion of tissue which is entirely submitted in cassette 3A. 4). The specimen is labeled "sigmoid" and consists of 2 portions of tissue which aggregate to 0.2 x 0.2 x 0.2 CM. The specimen is entirely submitted in cassette 4A. 5). The specimen is labeled "rectal" and consists of 2 portions of tissue which aggregate to 0.2 x 0.2 x 0.2 CM. The specimen is entirely submitted in cassette 5A. 01/03/2017OK ICD-9 CODES: CPT CODES: 1: 21639 2: 33730 3: 06873 4: 20173 5: 32476 Electronically Signed Out Jessenia Stoner MD [facility] Pathology [facility]., [address] [place] [address], [place] [address] Technical component performed at [facility], [address] [place] [address] Ave[address], [place], [address]
== END | disposition home or self-care (01) ==
LOC: END 07:24
PROVIDERS: ATTEND Internal Medicine Gastroenterology
DX: K51.90 Ulcerative colitis, unspecified, without complications (principal); R51 Headache; Z79.899 Other long term (current) drug therapy; Z79.52 Long term (current) use of systemic steroids
CPT/HCPCS: 45380; J7120

== ENCOUNTER → 2017-03-17 | Day surgery (SDC) | payer OTHER ==
[~2017-03-17] MED LIST changes: -Atropine 0.4 mg/mL Inj IVPUSH PRN; -IBUP800T28 PO; -Lactated Ringer's 1,000 ML IV ONE; -Lactated Ringer's 1,000 ML IV SCH; -MetoCLOpramide 5 mg/mL 2 mL Inj IVPUSH PRN; -Ondansetron 2 mg/mL 2 mL Inj IVPUSH PRN; -Propofol 10,000 mCg/mL 20 mL Inj ONE; +SODIUM CHLORIDE 0.9% IV ONE; +VEDOLIZUMAB IV ONE; +diphenhydrAMINE 25 mg Capsule PO ONE
[2017-03-17 14:22] LABS: BASOPHILS % (AUTO) 0.2 % (0-3); EOSINOPHILS % (AUTO) 4.1 % (0-5); MONOCYTES % (AUTO) 11.7 % (4-12); Mean Corpuscular Hemoglobin 24.7 pg (27.0-35.0); Mean Corpuscular Volume 80.3 fL (81-100); NEUTROPHILS % (AUTO) 59.2 % (40-74); Platelet Count 495 bil/L (150-400)
[2017-03-17 14:26] VITALS: BP 119/69; PULSE 83; RESP 18; O2SAT 100
[2017-03-17 14:36] LABS: ERYTHROCYTE SEDIMENTATION RATE 83 mm/hr (0-32)
--- NOTE | 2017-03-17 14:36 | NUR ---
Pt arrived to [facility]: Pt arrived to [facility] for first dose of Entyvio. IV started and infusing started. Pt tolerated infusion without issues. Pt prefers to be in a bed for infusion instead of recliner. Currently no bed available so pt accepted being in a recliner for this dose. MD called regarding lab orders for clarification as to what the [facility] lab was. MD did not know so order for that lab was discontinued. Other labs drawn as ordered. Care notes printed for pt but pt left before receiving them. Pt left the unit ambulatory and in stable condition.
[2017-03-17 14:37] LABS: Bilirubin, Direct 0.2 mg/dL (0.0-0.3)
== END | disposition home or self-care (01) ==
LOC: MOCO 07:53 → EDSTATUS 13:00
PROVIDERS: ATTEND Internal Medicine Gastroenterology
DX: K51.90 Ulcerative colitis, unspecified, without complications (principal)
CPT/HCPCS: 36415; 80076; 85025; 85651; 86140; 96365; J3490; J7050